=== PATIENT | male | born 1990 | race African-American/Black ===

== ENCOUNTER 2021-01-29 10:38 | Outpatient (RCR) | payer BC, SELFPAY | END 2021-03-17 23:59 | LOC: IMMUN 10:38 | PROVIDERS: Referring Provider Family Medicine; Visit Provider Family Medicine | DX: Z23 Encounter for immunization (principal) | CPT/HCPCS: 0001A; 0002A; 91300 ==

== ENCOUNTER 2023-07-24 18:21 | Emergency (ER) | payer BC, SELFPAY ==
[2023-07-24 18:22] VITALS: BP 145/108; PULSE 111; RESP 16; TEMP 36.6; O2SAT 99; BMI 42.5
--- NOTE | 2023-07-24 18:45 | EDS_ITS ---
HPI <NIELS Lambert - Last Filed: 07/24/23 20:56> History of Present Illness Chief Complaint: Abd Pain Narrative Narrative: Patient presenting today due to epigastric abdominal pain that he has had for the past 2 to 3 weeks. He reports he does have a history of GERD and was on omeprazole 20 mg but was recently bumped to 40 mg about a week ago by his PCP. He reports that he has been vomiting intermittently for the past 2 weeks. His PCP has him on a clear liquid diet for but despite that, he did have multiple episodes of vomiting today. His PCP told him that he may need a EGD but he has not been scheduled for one. He reports that he did notice a little streak of bright red blood in his vomit this afternoon but has not had any coffee-ground emesis. He is having normal bowel movements, no melena or hematochezia. He denies any fever or chills. PMH includes hypertension and GERD. PFSH <NIELS Lambert - Last Filed: 07/24/23 20:56> PFSH Home Medications amoxicillin 500 mg tablet 500 mg PO BID 10 days #20 tabs 07/24/23 [Rx Last Taken Unknown] clarithromycin 500 mg tablet 500 mg PO BID #20 tabs 07/24/23 [Rx Last Taken Unknown] omeprazole 40 mg capsule,delayed release 40 mg PO BID #20 caps 07/24/23 [Rx Last Taken Unknown] promethazine 25 mg tablet 25 mg PO Q6H PRN PRN Nausea #20 TABLETS 07/24/23 [Rx Last Taken Unknown] Allergy/AdvReac Type Severity Reaction Status Date / Time lidocaine AdvReac Rash Verified 07/24/23 18:22 Social History Smoking Status: Never smoker ROS <NIELS Lambert - Last Filed: 07/24/23 20:56> ROS ED Constitutional Constitutional ED: Denies chills or fever(s) Cardiovascular Cardiovascular: Denies chest pain Respiratory/Chest Respiratory/Chest: Denies cough or dyspnea Gastrointestinal Gastrointestinal: Reports abdominal pain, nausea and vomiting; Denies constipation or diarrhea Genitourinary Genitourinary ED: Denies dysuria, hematuria or urinary urgency Musculoskeletal Musculoskeletal: Denies arthralgias or myalgias Integumentary Denies rash Neurologic Neurologic: Denies weakness EXAM <NIELS Lambert - Last Filed: 07/24/23 20:56> Physical Exam Const Vital Signs: 07/24/23 18:22 07/24/23 19:14 07/24/23 20:00 Temperature 97.9 F 97.8 F 98 F Temperature Source Temporal Oral Oral Pulse Rate 111 H 89 90 Respiratory Rate 16 16 16 Blood Pressure 145/108 H 153/118 H 155/105 H Blood Pressure Mean 120 129 121 Pulse Ox 99 98 98 Oxygen Delivery Method Room Air Room Air Room Air Positive well nourished, well developed and no apparent distress General Appearance ED: well developed HEENT Reports normocephalic and head/scalp atraumatic Mouth ED: Yes moist mucous membranes normal Eyes PERRL and EOMs intact bilaterally Neck full ROM and supple Chest Wall inspection of chest normal Resp normal respiratory effort and clear to auscultation bilaterally Cardio regular rate and regular rhythm GI soft to palpation, non-tender, non-distended and no masses GI Narrative: Epigastric tenderness to palpation without any rigidity, guarding, or peritoneal signs, no McBurney's point tenderness Back/Spine normal ROM and normal to inspection Extremity normal to inspection and full ROM Neuro oriented x3, CN's II-XII intact bilaterally, moves all extremities, no focal motor deficits and no sensory deficits noted Sensorium / Orientation: awake and alert Psych mental status grossly normal and thought process normal Skin no rashes or lesions noted and no wounds <Dr. Angel Luis Orlando MD - Last Filed: 07/24/23 21:11> Physical Exam Const Vital Signs: 07/24/23 18:22 07/24/23 19:14 07/24/23 20:00 Temperature 97.9 F 97.8 F 98 F Temperature Source Temporal Oral Oral Pulse Rate 111 H 89 90 Respiratory Rate 16 16 16 Blood Pressure 145/108 H 153/118 H 155/105 H Blood Pressure Mean 120 129 121 Pulse Ox 99 98 98 Oxygen Delivery Method Room Air Room Air Room Air MDM <NIELS Lambert - Last Filed: 07/24/23 20:56> MDM MDM Narrative Medical decision making narrative: Patient presenting due to epigastric abdominal pain that he has had for the past 2 to 3 weeks as well as multiple episodes of nausea and vomiting over that same timeframe. He had more episodes of vomiting today than he does normally, prompting him to come in. He does have epigastric tenderness to palpation. He is well-appearing and in no acute distress, he is a little tachycardic in triage. Labs will be obtained to rule out leukocytosis, anemia, electrolyte abnormality, LUISITO, UTI, and pancreatitis. Attending did speak with Dr. Klein who recommends obtaining a CT of the abdomen and pelvis. He has been given a GI cocktail without the lidocaine due to allergy, IV fluids, Zofran, and famotidine. He does have a longstanding history of GERD but has been on omeprazole for this. At this point, work-up is pending. He will be given IV potassium. Lab Data Attestation: I reviewed the patient's lab results. Lab results narrative: Hemoglobin 18.4, potassium 3.1, creatinine 1.9, GFR 52 Labs: Laboratory Results - last 24 hr 07/24/23 07/24/23 18:40 19:07 WBC 5.2 RBC 6.22 H Hgb 18.4 H* Hct 52.5 MCV 84.4 MCH 29.6 MCHC 35.0 RDW Std Deviation 38.4 RDW Coeff of Chuy 12.5 Plt Count 303 MPV 9.8 Immature Gran % (Auto) 0.200 Neut % (Auto) 34.5 L Lymph % (Auto) 53.1 H [place] % (Auto) 9.1 Eos % (Auto) 2.5 Baso % (Auto) 0.6 Absolute Neuts (auto) 1.8 L Absolute Lymphs (auto) 2.74 Nucleated RBC % 0 [address] Path Review February foll Sodium 136 Potassium 3.1 L Chloride 98 Carbon Dioxide 30.0 Anion Gap 8 BUN 14 Creatinine 1.91 H Estim Creat Clear Calc 58.59 Est GFR (MDRD) Af Amer 52 L Est GFR (MDRD) Non-Af 43 L BUN/Creatinine Ratio 7.3 L Glucose 99 Calcium 9.0 Total Bilirubin 0.50 AST 37 ALT 56 Alkaline Phosphatase 57 Total Protein 8.2 Albumin 4.0 Globulin 4.2 Albumin/Globulin Ratio 1.0 Lipase 31 Urine Color Yellow Urine Clarity Sl. Cloudy Urine pH 6.0 Ur Specific [place] 1.010 Urine Protein 30 H Urine Glucose (UA) Normal Urine Ketones Negative Urine Occult Blood Negative Urine Nitrite Negative Urine Bilirubin Negative Urine Urobilinogen Normal Ur Leukocyte Esterase 25 H Urine RBC 0 SEEN Urine WBC 0-5 SEEN Ur Squamous Epith Cells 5-10 SEEN Urine Bacteria 0 SEEN Urine Mucus 0 SEEN Radiography Diagnostic Testing: Clinical Impression(s) from Imaging Studies Abdomen/Pelvis CT 07/24/23 19:40 IMPRESSION: No acute process within the abdomen and pelvis. Mild fullness of the mesenteric lymph nodes which may indicate sequela of nonspecific inflammatory response versus adenitis. Specifically, no acute appendicitis or bowel obstruction. Electronically Signed: July Engle MD at 20:53 EDT , <Dr. Angel Luis Orlando MD - Last Filed: 07/24/23 21:11> [facility] Lab Data Labs: Laboratory Results - last 24 hr 07/24/23 07/24/23 18:40 19:07 WBC 5.2 RBC 6.22 H Hgb 18.4 H* Hct 52.5 MCV 84.4 MCH 29.6 MCHC 35.0 RDW Std Deviation 38.4 RDW Coeff of Chuy 12.5 Plt Count 303 MPV 9.8 Immature Gran % (Auto) 0.200 Neut % (Auto) 34.5 L Lymph % (Auto) 53.1 H [place] % (Auto) 9.1 Eos % (Auto) 2.5 Baso % (Auto) 0.6 Absolute Neuts (auto) 1.8 L Absolute Lymphs (auto) 2.74 Nucleated RBC % [address] Review May foll Sodium 136 Potassium 3.1 L Chloride 98 Carbon Dioxide 30.0 Anion Gap 8 BUN 14 Creatinine 1.91 H Estim Creat Clear Calc 58.59 Est GFR (MDRD) Af Amer 52 L Est GFR (MDRD) Non-Af 43 L BUN/Creatinine Ratio 7.3 L Glucose 99 Calcium 9.0 Total Bilirubin 0.50 AST 37 ALT 56 Alkaline Phosphatase 57 Total Protein 8.2 Albumin 4.0 Globulin 4.2 Albumin/Globulin Ratio 1.0 Lipase 31 Urine Color Yellow Urine Clarity Sl. Cloudy Urine pH 6.0 Ur Specific [place] 1.010 Urine Protein 30 H Urine Glucose (UA) Normal Urine Ketones Negative Urine Occult Blood Negative Urine Nitrite Negative Urine Bilirubin Negative Urine Urobilinogen Normal Ur Leukocyte Esterase 25 H Urine RBC 0 SEEN Urine WBC 0-5 SEEN Ur Squamous Epith Cells 5-10 SEEN Urine Bacteria 0 SEEN Urine Mucus 0 SEEN Radiography Diagnostic Testing: Clinical Impression(s) from Imaging Studies Abdomen/Pelvis CT 07/24/23 19:40 IMPRESSION: No acute process within the abdomen and pelvis. Mild fullness of the mesenteric lymph nodes which may indicate sequela of nonspecific inflammatory response versus adenitis. Specifically, no acute appendicitis or bowel obstruction. Electronically Signed: July Engle MD at 20:53 EDT , Management Discussion w/another healthcare provider: Channel Sales Manager (GI friend) Treatment and Re-Evaluation Comments:: I have personally performed a face to face assessment of the patient and have reviewed the BRUCE Note. I performed a substantive portion of the visit including all aspects of the following. My ramos findings include: History is 2-3 weeks of recurrent vomiting, some blood today, and epigastric pain. Pain is increased within 5 minutes of putting food in his stomach. No recent NSAIDs, hospitalization, trauma, significant increase stress. No history of EGD in the past. Exam is epigastric tenderness no guarding or rebound otherwise abdomen benign. Normal bowel sounds present. Medical Decison Making Labs noted, no significant sign of anemia or increased BUN to suggest a hemodynamically significant upper GI bleed. Discussed with GI, recommended CT which was done I reviewed the images and the report and I agree with it, negative for anything related to this, but incidental mesenteric adenitis with an appendicolith. He does not have tenderness in the right lower quadrant I do not suspect acute appendicitis here and there is no radiographic signs of appendicitis but we discussed reasons to return for that. In the meantime we will treat empirically for H. pylori with quadruple therapy for 10 days. We will follow-up. Getting IV potassium here prior to discharge. Other additions or changes: [None] Discharge Plan Triage Chief Complaint: Abd Pain ED Midlevel Provider: Yocasta Garcia ED Provider: Angel Luis Orlando Dx/Rx/DC Orders Clinical Impression: Hypokalemia due to excessive gastrointestinal loss of potassium, Acute gastritis with bleeding, Acute epigastric pain, Appendicolith Instructions: ED PUD, H Pylori?Infect Peptic Ulcer Prescriptions: New amoxicillin 500 mg tablet 500 mg PO BID 10 Days Qty: 20 0RF clarithromycin 500 mg tablet 500 mg PO BID Qty: 20 0RF omeprazole 40 mg capsule,delayed release(DR/EC) 40 mg PO BID Qty: 20 0RF promethazine [promethazine] 25 mg tablet 25 mg PO Q6H PRN PRN (Reason: Nausea) Qty: 20 0RF Primary Care Provider: Moe Goodwin NP Referrals: FriendDonell DO [Med Staff - Active Staff] - (call for appt) Activity Restrictions/Additional Instructions: You will be increasing your omeprazole to twice daily for the next 10 days, in addition to the prescription antibiotics, and taking Pepto-Bismol 4 times daily, all for 10 days. Be aware that taking the Pepto-Bismol this often will likely turn your stool black which is normal. Disposition Disposition: Home, Self Care
[2023-07-24 18:50] LABS: Absolute Lymphocyte Count 2.74 X10^3/uL (0.83-4.51); Absolute Neutrophil Count 1.8 X10^3/uL (2.0-7.7); Basophil# 0.03 X10^3/uL; Basophil% 0.6 % (0-1); Eosinophil# 0.13 X10^3/uL; Eosinophils% 2.5 % (0-5); Hematocrit 52.5 % (40-54); Lymphocyte # 2.74 X10^3/ul (0.83-4.51); Lymphocyte % 53.1 % (19-41); Mean Corpuscular Hgb 29.6 pg (27.0-32.0); Mean Corpuscular Volume 84.4 fL (80-94); Mean Platelet Vol. 9.8 fl (6.2-12.0); Monocyte# 0.47 X10^3/uL; Monocyte% 9.1 % (0-10); NRBC Flagged by Analyzer 0 % (0-5); Neutrophil # 1.78 X10^3/uL (2.7-7.7); Neutrophil % 34.5 % (47-70); Platelet Count 303 K/mm3 (150-450); RBC Distribution Width CV 12.5 % (11.6-14.6); RBC Distribution Width SD 38.4 fl (35.1-43.9); Red Blood Count 6.22 M/mm3 (4.6-6.2); White Blood Count 5.2 K/mm3 (4.4-11.0)
[2023-07-24] MEDS: Mag Hydrox/Al Hydrox/Simeth 30 ML UDC PO (18:53)
[2023-07-24] MEDS: Famotidine 20 MG Tablet 40 MG PO (18:53)
[2023-07-24] MEDS: 0.9% Normal Saline (1000mL) 1,000 ML 1000 ML IV (18:53)
[2023-07-24] MEDS: Ondansetron 4 MG/2 ML Vial IV (18:53)
[2023-07-24 19:00] LABS: Hemoglobin 18.4 g/dL (13.0-16.5)
[2023-07-24 19:10] LABS: AST(SGOT) 37 U/L (15-37); Alanine Aminotransfer ALT/SGPT 56 U/L (16-61); Alkaline Phosphatase 57 U/L (45-117); Anion Gap 8 (5-15); BUN 14 mg/dL (7-18); BUN/Creat Ratio 7.3 RATIO (10-20); Chloride 98 mmol/L (98-107); Creatinine, Serum 1.91 mg/dL (0.70-1.30); EST Glomerular Filtration Rate 43 mL/min (>60); Est Glom Filt Rate - Afr Amer 52 mL/min (>60); Estimated Creatinine Clearance 58.59 ml/min; Globulin 4.2 g/dL (2.2-4.2); Glucose 99 mg/dL (74-106); Lipase 31 U/L (13-75); Potassium 3.1 mmol/L (3.5-5.1); Protein, Total 8.2 g/dL (6.4-8.2); Sodium Level 136 mmol/L (136-145)
[2023-07-24 19:14] VITALS: BP 153/118; PULSE 89; RESP 16; TEMP 36.6; O2SAT 98
[2023-07-24 19:17] LABS: Bacteria 0 SEEN /hpf (None Seen); Mucous, Urine 0 SEEN /hpf (<or=2+); Red Blood Cells-Urine 0 SEEN /hpf (0-5)
[2023-07-24 19:19] LABS: Color, Urine Yellow (Yellow); Glucose, Dipstick Normal (Normal); Ketone-Dipstick Negative (Negative); Leukocyte Esterase-Dipstick 25 /ul (Negative); Nitrite-Dipstick Negative (Negative); Occult Blood-Urine Negative /ul (Negative); Protein-Dipstick 30 mg/dl (Negative); Urine Bilirubin Dipstick Negative (Negative); Urine Clarity Sl. Cloudy (Clear); Urine Urobilinogen Normal (Normal)
[2023-07-24 19:35] LABS: White Blood Cells 0-5 SEEN /hpf (0-5)
[2023-07-24 19:36] LABS: Squamous Epithelial Cells - UA 5-10 SEEN /hpf (0-5)
--- NOTE | 2023-07-24 19:40 | CT_ITS ---
STUDY: CT ABDOMEN AND PELVIS WITH CONTRAST REASON FOR EXAM: Male, 32 years old. epigastric pain RADIATION DOSAGE (If Supplied By Facility): CTDIvol = ( 29.07 ) mGy, DLP = ( 1892.04 ) mGycm TECHNIQUE: Transaxial images were obtained from the dome of the diaphragm to the symphysis pubis without oral contrast. IV 100mL Isovue-370 was administered. Sagittal and coronal images were reconstructed. Individualized dose optimization techniques were used for this CT. COMPARISON: None. FINDINGS: The visualized lung bases are unremarkable. The visualized portions of the heart are within normal limits. Normal liver. Normal gallbladder and extrahepatic biliary system. Normal spleen. Normal pancreas. Normal bilateral adrenal glands. Normal right kidney. Normal left kidney. Normal visualized stomach. Normal small intestine. Normal colon. Incidental note is made of an appendicolith measuring 3 mm otherwise normal appendix. No surrounding inflammatory changes seen. There are several lymph nodes within the mesenteric region and more so along the medial aspect of the right colon which appears slightly prominent largest measuring approximately 1.5 cm which may indicate sequela of nonspecific inflammatory response or mesenteric adenitis. Normal abdominal aorta. Normal inferior vena cava. Normal retroperitoneum. Normal urinary bladder. Normal abdominal wall. Mild spondylosis throughout the spine. CT/Abdomen/Pelvis W IV Cont ONLY IMPRESSION: No acute process within the abdomen and pelvis. Mild fullness of the mesenteric lymph nodes which may indicate sequela of nonspecific inflammatory response versus adenitis. Specifically, no acute appendicitis or bowel obstruction. Electronically Signed: July Engle MD at 20:53 EDT ,
[2023-07-24] MEDS: Metoclopramide 10 MG/2 ML Vial 5 MG IV (19:52)
[2023-07-24 20:00] VITALS: BP 155/105; PULSE 90; RESP 16; TEMP 36.6; O2SAT 98
[2023-07-24] MEDS: Potassium Chloride 10mEq/100mL 10 MEQ/100 ML IV.SOLN. 100 MEQ IV BOLUS (21:07)
[2023-07-24 21:18] VITALS: BP 133/104; PULSE 88; RESP 16; TEMP 36.6; O2SAT 98
[2023-07-24 22:11] VITALS: BP 134/102; PULSE 88; RESP 16; TEMP 36.6
[2023-07-26 09:56] LABS: Pathologist Review Reviewed
== END 2023-07-24 22:13 | disposition home or self-care (01) ==
PROVIDERS: Physician Assistant; Emergency Provider Emergency Medicine; PCP Nurse Practitioner Primary Care; Visit Provider Emergency Medicine
DX: E87.6 Hypokalemia (principal); K29.01 Acute gastritis with bleeding; R10.13 Epigastric pain; K38.1 Appendicular concretions; K21.9 Gastro-esophageal reflux disease without esophagitis; Z79.899 Other long term (current) drug therapy
CPT/HCPCS: 74177; 80053; 81001; 83690; 85025; 96361; 96365; 96375; 99283; J7030; Q9967; A4216; J2405